=== PATIENT | male | born 1990 | race Caucasian/White ===

== ENCOUNTER 2021-12-28 14:49 | Emergency (ER) | payer OTHER, SELFPAY ==
[2021-12-28 14:58] VITALS: BP 104/64; PULSE 92; RESP 16; TEMP 36.4; O2SAT 99
--- NOTE | 2021-12-28 15:20 | ED.SKABFB ---
HPI - Skin/Abscess/Foreign Bdy General Chief complaint: Skin/Abscess/Foreign Body Stated complaint: RASH Time Seen by Provider: 12/28/21 15:20 Source: patient and RN notes reviewed Mode of arrival: ambulatory Limitations: no limitations History of Present Illness HPI narrative: 31-year-old male presents to the [facility] with multiple red, itchy rashes. Has a red, honey colored crusted area to the left nostril. Left inner upper thigh multi small areas less than half centimeter piece that he describes as itchy. Left lower inner thigh 2 cm red, warm circular area. States its been approximately 1 week since this all started. Has tried [id number] treatments with no relief, Neosporin. Related Data Home Medications Medication Instructions Recorded Confirmed paroxetine HCl 20 mg tablet mg PO 12/28/21 risankizumab-rzaa 150 mg/mL mg subcut 12/28/21 subcutaneous syringe (Skyrizi) Allergies Allergy/AdvReac Type Severity Reaction Status Date / Time iodine Allergy Rash Uncoded 12/28/21 15:34 Review of Systems Review of Systems: All systems reviewed & are unremarkable except as noted in HPI and below Constitutional: Constitutional: Reports no additional constitutional complaints, Denies chills and Denies fever(s) Eyes: Eyes: Reports no additional eye complaints ENT: Reports as per HPI Cardiovascular: Cardiovascular: Reports no additional cardiovascular complaints Respiratory: Respiratory: Reports no additional respiratory complaints Gastrointestinal: Gastrointestinal: Reports no additional gastrointestinal complaints Musculoskeletal: Musculoskeletal: Reports no additional musculoskeletal complaints Integumentary/Breasts: Skin/Breast: Reports as per HPI Neurologic: Reports system reviewed and no additional complaints, except as documented Psychiatric: Psychiatric: Reports no additional psychiatric complaints Allergic/Immunologic: Allergic/Immunologic: Reports no additional allergic/immunologic complaints PMFSH Comments At the time of my signature, I reviewed and agree with the nursing past medical, surgical, social, and family history. There is no relevant family history pertinent to the patient complaint. Exam Const: General: healthy appearing, no acute distress and alert Nutritional Appearance: well nourished Orientation/consciousness: patient oriented x3 Limitations: no limitations HENMT: Head: normal to inspection Ears: external ears normal General nose exam: Normal external nose present and Normal nares present Nose image: 1. Less than half centimeter red, crusted area without drainage or surrounding inflammation Face and sinus: normal facial exam, sinuses nontender and face symmetric Eyes: General: appearance normal, both eyes and all related structures Conjunctivae: conjunctivae normal Pupils: Equal, round and reactive pupils present Neck: Neck: normal visual inspection, no lymphadenopathy and no meningeal signs Chest: Chest palpation & inspection: normal inspection of the chest Resp: Effort & Inspection: normal respiratory effort and no use of accessory muscles Auscultation: clear to auscultation bilaterally, no crackles, no rales, no rhonchi and no wheezes Cardio: Rate: regular rate Rhythm: regular rhythm Back/Spine/Pelvis: Cervical Spine: normal cervical lordosis Thoracic/Lumbar Spine: thoracic and lumbar spine normal to inspection Skin: General skin exam: normal color Wounds: no wounds Other: Red area medial inner left nostril, honey colored crust. Neuro: General: patient oriented x3, moves all extremities, no meningeal signs and no focal motor deficits Cranial nerves: Yes Equal, round and reactive pupils present Speech: normal speech Gait exam (Neuro): Normal gait present Extrem: General: normal to inspection, full ROM and capillary refill normal Psych: Appearance: grossly normal and well kempt Mental Status: mental status grossly normal Affect: normal affect
== END 2021-12-28 15:40 | disposition home or self-care (01) ==
PROVIDERS: Emergency Provider Nurse Practitioner; PCP Family Medicine
DX: L01.00 Impetigo, unspecified (principal); B35.9 Dermatophytosis, unspecified; L03.116 Cellulitis of left lower limb; L40.9 Psoriasis, unspecified
CPT/HCPCS: 99213; G0463

== ENCOUNTER 2023-11-02 12:42 | Emergency (ER) | payer OTHER, SELFPAY ==
--- NOTE | 2023-11-02 12:48 | ED.GENADULT ---
HPI - General Adult General Chief complaint: Eye Problems Stated complaint: Eyes Irritation Time Seen by Provider: 11/02/23 13:00 Source: patient, RN notes reviewed and old records reviewed Mode of arrival: ambulatory Limitations: no limitations History of Present Illness HPI narrative: 33-year-old male presents to the [facility] with bilateral eye irritations. States that at 2:00 a.m. he was using a plasma cutter with just a pair of sunglasses, no holding home med or glasses. States since then he woke up and his eyes have been irritated, burning. Does not wear glasses, does not were contacts. Denies any change in vision, visual acuity done. Patient report last Tdap was 1-2 years ago, states it was under 5 years. Onset (ago): hour(s) Related Data Home Medications Medication Instructions Recorded Confirmed paroxetine HCl 20 mg tablet 20 mg PO DAILY 12/28/21 11/02/23 risankizumab-rzaa 150 mg/mL 150 mg subcut WEEKLY 12/28/21 11/02/23 subcutaneous syringe (Skyrizi) Allergies Allergy/AdvReac Type Severity Reaction Status Date / Time iodine Allergy Rash Uncoded 11/02/23 12:44 Review of Systems Review of Systems: All systems reviewed & are unremarkable except as noted in HPI and below Constitutional: Constitutional: Reports no additional constitutional complaints Eyes: Eyes: Reports as per HPI ENT: Reports system reviewed and no additional complaints, except as documented Cardiovascular: Cardiovascular: Reports no additional cardiovascular complaints, Denies chest pain and Denies dyspnea Respiratory: Respiratory: Reports no additional respiratory complaints, Denies chest congestion, Denies cough and Denies dyspnea Gastrointestinal: Gastrointestinal: Reports no additional gastrointestinal complaints, Denies abdominal pain, Denies nausea and Denies vomiting Musculoskeletal: Musculoskeletal: Reports no additional musculoskeletal complaints Integumentary/Breasts: Skin/Breast: Reports system reviewed and no additional complaints, except as docu Neurologic: Reports system reviewed and no additional complaints, except as documented Psychiatric: Psychiatric: Reports no additional psychiatric complaints Allergic/Immunologic: Allergic/Immunologic: Reports no additional allergic/immunologic complaints PMFSH Comments At the time of my signature, I reviewed and agree with the nursing past medical, surgical, social, and family history. There is no relevant family history pertinent to the patient complaint. Exam Const: General: cooperative, healthy appearing, comfortable, no acute distress, well developed, alert and well nourished Nutritional Appearance: well nourished Orientation/consciousness: patient oriented x3 Limitations: no limitations HENMT: Head: normal to inspection Ears: hearing grossly normal bilaterally and external ears normal Face/Nose/Sinus: Normal external nose present, Normal nares present, Normal nasal mucous membranes and turbinates present, normal facial exam and face symmetric Face and sinus: normal facial exam and face symmetric Throat: posterior oropharynx normal, uvula midline and no uvular edema Eyes: General: appearance normal, both eyes and all related structures Visual Gomes: normal visual gomes by confrontation Alignment and Position: alignment normal Periorbital: periorbital findings normal Eyelids: eyelids normal Conjunctivae: conjunctivae normal Sclera: sclerae normal Cornea: corneas normal and fluorescein used Pupils: Equal, round and reactive pupils present EOM: EOMs intact bilaterally Neck: Neck: normal visual inspection, full ROM, no lymphadenopathy and no meningeal signs Chest: Chest palpation & inspection: normal inspection of the chest Resp: Effort & Inspection: normal respiratory effort and able to speak in complete sentences Cardio: Rate: regular rate Skin: General skin exam: normal color and no rashes or lesions noted Lesions: no lesions Rashes: no rashes Traum
[2023-11-02 13:00] VITALS: BP 106/59; PULSE 85; RESP 18; TEMP 36.6; O2SAT 99
[2023-11-02] MEDS: TETRACAINE HCL 0.5% OPHTH SOLN 4 ML BTL 1 DROP EACH EYE (13:17)
[2023-11-02] MEDS: FLUORESCEIN SOD 1 MG/STRIP EACH EYE ×2 (13:17→13:27)
== END 2023-11-02 13:35 | disposition home or self-care (01) ==
PROVIDERS: Emergency Provider Nurse Practitioner; PCP Physician Assistant Medical
DX: H16.133 Photokeratitis, bilateral (principal); E78.00 Pure hypercholesterolemia, unspecified; R73.03 Prediabetes; L40.9 Psoriasis, unspecified; F32.A Depression, unspecified
CPT/HCPCS: 99213; G0463

== ENCOUNTER 2024-10-09 14:21 | Emergency (ER) | payer OTHER, SELFPAY ==
--- NOTE | ~2024-10-09 | XR_ITS ---
EXAMINATION: XR chest 1V portable DATE: 10/09/2024 15:03 INDICATION: Wheezing and crackles at the lung bases TECHNIQUE: frontal view of the chest was obtained. COMPARISON: None FINDINGS: The lungs are clear with no focal airspace opacities, pulmonary edema, pleural effusion or pneumothor ax. The cardiomediastinal silhouette is normal. Visualized bones and soft tissues are unremarkable. IMPRESSION: 1. No acute cardiopulmonary disease. Reviewed, dictated and finalized at location A.
[2024-10-09 14:23] VITALS: BP 108/58; PULSE 108; RESP 20; TEMP 36.6; O2SAT 96
--- OUTSIDE RECORDS SUMMARY | 2024-10-09 14:26 | XMS_ITS | Clinical Summary ---
Author Organization [place] [id number] [facility] Address [address] [place] [id number] Care Team Providers Care Data Abstractor Name Role Phone Jamison Ng MD Unavailable Perez Peterson Primary Care Provider [phone] Allergies Active Allergy Reactions Criticality Noted Date Comments Iodine Hives,Swelling,Vomiting Medium 12/11/2018 Medications Skyrizi 150 mg/mL syringe Every 3 months 2 Active pen needle, diabetic 32 gauge x 5/32 needleIndications: DM type 2 with diabetic dyslipidemia (HCC) With ozempic 30 each 4 Active ketoconazole (NIZORAL) 2 % cream Apply topically As needed 4 Active atorvastatin (LIPITOR) 40 mg tabletIndications: Mixed hyperlipidemia Take 1 tablet (40 mg total) by mouth daily 90 tablet 3 4 Active semaglutide (Ozempic) 1 mg/dose (4 mg/3 mL) pen injector injectionIndicatio ns:DM type 2 with diabetic dyslipidemia (HCC) Inject 1 mg under the skin once a week 3 mL 2 4 Active PARoxetine (PAXIL) 40 mg tabletIndications: Excessive anger Take 1 tablet (40 mg total) by mouth every morning 90 tablet 3 4 025 Active testosterone cypionate (DEPO-TESTOTERONE) 200 mg/mL injectionIndicatio ns:Hypogonadism in male Inject 1 mL (200 mg total) into the muscle as instructed every 14 (fourteen) days 2 mL 2 4 Active syringe with needle (Syringe 3cc/91Gy4-1/2) 3 mL 21 gauge x 1 1/2 syringeIndications :Hypogonadism in male 1 each every 14 (fourteen) days 2 each 2 4 Active varenicline tartrate (CHANTIX MISAEL) 0.5 mg (11)- 1 mg (42) tabletIndications: Smoking Use as directed on package instructions, try to quit smoking after 1 week. 53 tablet 4 Active varenicline tartrate (CHANTIX) 1 mg tabletIndications: Smoking Cessation Take 1 tablet (1 mg total) by mouth 2 (two) times a day Take with full glass of water. 60 tablet 1 4 Active testosterone enanthate (Xyosted) 100 mg/0.5 mL auto-injectorIndic ations:Hypogonadis m male Inject 100 mg under the skin every 7 days 2 mL 2 5 Active cholecalciferol (VITAMIN D-3) 2000 unit capsule Take 1 capsule (2,000 Units total) by mouth daily 5 Active Active Problems Problem Noted Date Diagnosed Date Intractable migraine with aura without status mi grainosus 06/24/2024 DM type 2 with diabetic dyslipidemia 07/18/2023 Assessment & Plan (03/14/2024 10:07 AM RAILROAD BRAKE OPERATOR): Chronic stable and well controlled Continue ozempic Assessment & Plan (10/23/2023 4:29 PM CDT): Chronic and not at goal Increase ozempic Assessment & Plan (07/18/2023 11:07 AM CDT): Chronic uncontrolled with hyperglycemia Start ozempic Repeat A1c in 3mo Hypogonadism male 07/18/2023 Assessment & Plan (03/14/2024 10:03 AM RAILROAD BRAKE OPERATOR): Chronic Not at goal Work on exercise, weight reduction and f/u in 3mo Repeat testosterone level in 3mo Assessment & Plan (07/18/2023 11:14 AM CDT): Chronic Not at goal Work on exercise, weight reduction and f/u in 3mo Repeat testosterone level in 3mo Mixed hyperlipidemia 07/18/2023 Assessment & Plan (03/14/2024 10:08 AM RAILROAD BRAKE OPERATOR): Chronic not at goal Non compliant with atorvastatin Lipid panel in 3mo Assessment & Plan (10/23/2023 4:30 PM CDT): Chronic Not at goal but inconsistent with dosing Continue atorvasttin Assessment & Plan (07/18/2023 11:08 AM CDT): Chronic Start atrovastatin 40mg Lipid and cmp in 3mo Excessive anger 07/27/2022 Assessment & Plan (03/14/2024 10:07 AM RAILROAD BRAKE OPERATOR): Chronic stable and well controlled Continue with paroxetine Assessment & Plan (10/23/2023 4:28 PM CDT): Chronic stable and well controlled Continue with paroxetine Assessment & Plan (07/27/2022 4:21 PM CDT): Chronic Uncontrolled Increase paxil 40 mg Gastroesophageal reflux disease 01/21/2020 Assessment & Plan (09/01/2020 5:50 PM CDT): Chronic conditions stable continue current regimen refill meds Hepatic steatosis 12/31/2018 Smoking 06/06/2018 Psoriasis 08/08/2016 Resolved Problems Problem Noted Date Diagnosed Date Resolved Date Abdominal pain 12/31/2018 01/21/2020 Viral wart on finger 12/31/2018 020 Assessment & Plan (02/25/2019 10:35 PM RAILROAD BRAKE OPERATOR): prior to procedure consent was obtained after the patient was explained to on the possible complications and patient voice aknowlegement. local anesthetic with 1% lidocaine after betadine skin prep. after appropriate anesthetic #15 blade was used to perform shave excision the lesion of the left middle finger. lesion destruction was then performed with cauthery to the site. patient tolerated procedure well without incident. Patient sx site was bandaged and was advised of routine care. Patient advised to call with concerns/complications. Assessment & Plan (12/31/2018 4:29 PM CDT): prior to procedure consent was obtained after the patient was explained to on the possible complications and patient voice aknowlegement. local anesthetic with 1% lidocaine after betadine skin prep to left 3rd finger. after appropriate anesthetic #15 blade was used to perform shave excision the lesion. lesion destruction was then performed with cauthery to the site. patient tolerated procedure well without incident. Patient sx site was bandaged and was advised of routine care. Patient advised to call with concerns/complications. Ingrown left greater toenail 12/31/2018 01/21/2020 Assessment & Plan (12/31/2018 4:30 PM CDT): Patient was advised of procedure and possible complications. He states he is aware and gives consent to proceed with procedure. betadine skin prep. ring block used with 1% lidocaine without epi. scissors used to cut nail back the left medial great toenail sofia to base then curved hemostats used to remove spiked nail. silver nitrate used to obtain hemostasis. appropiate bandage applied and patient advised of routine care. patient tolerated prodecure well without complications. call with any questions or concerns. Patient was advised to call with any concerns/complications. Immunizations Immunization Administration Dates Next Due DTP 11/16/1994,04/20/1993 Influenza, Unspecified 03/14/2024(Deferr ed: Patient Refused),12/09/2022(Deferred: Patient Refused) OPV 11/16/1994,04/20/1993 Tdap 01/31/2022 Surgical History Surgery Date Site/Laterality Comments NO PAST SURGERIES 10/23/2023 EXCISION / CURRETTAGE OF BON E CYST / BENIGN TUMOR OF PROXIMAL HUMERUS W/ OR W/O BONE GRAFT 01/09/2024 - 02/08/2024 Left left ear Medical History Medical History Date Comments Diabetes mellitus (HCC) Hypogonadism in male Psoriasis Hyperlipidemia GERD (gastroesophageal reflux disease) Alcohol abuse Family History Medical History Relation Name Comments No Known Problems Daughter No Known Problems Father No Known Problems Maternal Grandfather No Known Problems Maternal Grandmother Asthma Mother Eri dc No Known Problems Paternal Grandfather No Known Problems Paternal Grandmother No Known Problems Son Relation Name Status Comments Daughter Alive Father Alive Unknown History Maternal Grandfather Maternal Grandmother Mother Eri dc Alive Unknown Hist ory Paternal Grandfather Paternal Grandmother Sister 1 Alive Sister 2 Alive Sister 3 Alive Son Alive Social History Tobacco Use Types Packs/Day Years Used Date Smoking Tobacco: Every Day Cigarettes 1.5 17.5 Started: 04/10/2007 Smokeless Tobacco: Never Tobacco Cessation:Ready to Q uit: Yes; Counseling Given: Not Answered Alcohol Use Standard Drinks/Week Comments Not Currently 0 (1 standard drink = 0.6 oz pur e alcohol) AUDIT-C Answer Date Recorded Q1: How often do you have a drink containing alcohol? Never 03/21/2024 Q2: How many drinks containi ng alcohol do you have on a typical day when you are drinking? Patient does not drink Q3: How often do you have si x or more drinks on one occasion? Never 03/21/2024 PHQ-2 Answer Date Recorded PHQ-2 Total Score (If total score is 3 or more points, staff should administer the PHQ-9) 0 10/23/2023 Sex and Gender Information Value Date Recorded Sex Assigned at Not on file Legal Sex Male 10:39 PM RAILROAD BRAKE OPERATOR Gender Identity Not on file Sexual Orientation Not on file Obstetrics History Last Filed Vital Signs Vital Sign Reading Time Taken Comments Blood Pressure 118/58 06/24/2024 12:56 PM CDT Pulse 91 06/24/2024 12:56 PM CDT Temperature 36.3 C (97.3 F) 06/24/2024 12:56 PM CDT Respiratory Rate 16 06/24/2024 12:5 6 PM CDT Oxygen Saturation 98% 06/24/2024 12: 56 PM CDT Inhaled Oxygen Concentration - - Weight 104.5 kg (230 lb 6.4 oz) 025 12:56 PM CDT Height 170.2 cm (5' 7.01) 06/24/2024 1 2:56 PM CDT Body Mass Index 36.08 06/24/2024 12:56 PM CDT Plan of Treatment Health Maintenance Due Date Last Done Comments Albumin Creatinine Ratio, Urine 1989 Hepatitis C Screening 1989 Dilated Eye Exam 1989 Foot Exam 1989 Hepatitis B Screening 2007 Pneumococcal vaccine <65 (1 of 2 - PCV) 01/27/2008 Covid-19 Vaccine (3 - season) 2023 07/13/2020, 06/19/2020 Regular Well Visit/Exam 18-64 07/17/2024 07/18/2023, 07/27/2022 Lipid Panel 10/18/2024 10/19/2023 eGFR 10/18/2024 10/19/2023 Depression Screening 10/22/2024 10/23/2023, 07/27/2022, 04/19/2021, Additional history exists Influenza Vaccine (#1) 2024 Hemoglobin A1C 12/22/2024 06/21/2024, 10/19/2023 DTaP/Tdap/Td Vaccine (4 - Td or Tdap) 02/01/2032 01/31/2022, 11/16/1994, 04/20/1993 HPV Vaccines Aged Out No longer eligi ble based on patient's age to complete this topic Varicella Vaccines Discontinued Procedures Procedure Name Priority Date/Time Associated Diagnosis Comments HEMOGLOBIN A1C Routine 06/21/2024 EGFR Routine 10/19/2023 HM LIPID PANEL Routine 10/19/2023 from Last 3 Months or Most Recently Relevant to Health Maintenance Results * HEMOGLOBIN A1C (06/21/2024) [facility] Provider HEALTH MAINTENANCE Final Result EXTERNAL LAB * EGFR (10/19/2023) [facility] Provider MD HEALTH MAINTENANCE Final Result EXTERNAL LAB * LIPID PANEL (10/19/2023) SCRIBED Cholesterol, Total 227.1 SCRIBED Triglycerides 251 SCRIBED HDL 29.1 SCRIBED LDL 148 [facility] Provider MD HEALTH MAINTENANCE Final Result from Last 3 Months or Most Recently Relevant to Health Maintenance Insurance [facility] CHO[facility] PLUS [facility] CHOICE PLUS Care Teams Data Abstractor Relationship Specialty Start Date End Date Perez Peterson PA PCP - General Family Medicine 07/27/22 Jamison Ng MD Family Medicine 12/06/18
--- OUTSIDE RECORDS SUMMARY | 2024-10-09 14:26 | XMS_ITS | Encounter Summary ---
Author Organization [facility] Address [address] [place] [address] Care Team Providers Care Garnisher Name Role Phone Unavailable Primary Care Provider Unavailabl e Encounter Details Date Type Department Care Team (Late st Contact Info) Description 07/31/2024 Lab Requisition [facility] - DermPath Lab [address] [place] [address] Genoveva Curtis MD [address] [facility] [address] [place] [address] Social History Tobacco Use Types Packs/Day Years Used Date Smoking Tobacco: Never Assessed Sex and Gender Information Value Date Recorded Sex Assigned at Not on file Legal Sex Male 3:51 PM CDT Gender Identity Not on file Sexual Orientation Not on file documented as of this encounter Plan of Treatment Not on file documented as of this encounter Procedures Procedure Name Priority Date/Time Associated Diagnosis Comments DERMATOPATHOLOGY Routine 07/31/2024 3:33 PM CDT documented in this encounter Results * DERMATOPATHOLOGY (07/31/2024 3:33 PM CDT) Case Report Dermatopathology Report Case: [id number] Authorizing Provider: Genoveva Curtis MD Collected: 07/31/2024 03:33 PM Ordering Location: [facility] - Received: 08/02/2024 08:31 AM DermPath Lab Pathologist: Hattie Liu MD Specimen: Skin, left forearm 1:34 PM CDT DERMATOPATHOLOGY LABORATORY Final Diagnosis Specimen A. SKIN, left forearm: ULCER WITH SUPERFICIAL DERMAL NECROSIS (L98.499) 1:34 PM CDT DERMATOPATHOLOGY LABORATORY at 1334 CDT Clinical History R/O; AK vs. ISK vs. Other, Irritated, Non-healing 1 year 1:34 PM CDT DERMATOPATHOLOGY LABORATORY Gross Description Specimen A: Received is one formalin filled container labeled with the patient's name and designated left forearm. The specimen consists of a shave biopsy (2 pieces) measuring 5x4x1, 5x2x1 mm. Jar 0. 1:34 PM CDT DERMATOPATHOLOGY LABORATORY Microscopic Description Specimen A. SKIN, left forearm: There is an ulcer, beneath which there are vascular proliferation, fibroblasts, and an edematous stroma. 1:34 PM CDT DERMATOPATHOLOGY LABORATORY Disclaimer An external and internal positive and negative controls are appropriate for the histochemical, immunohistochemical and immunofluorescence stain(s) in this case (if any), except where stated explicitly. The performance characteristics of the stain(s) cited in this report were developed and its performance characteristic determined by the Dermatopathology Laboratory at [facility], directed by Dr. Britany Ramirez. These tests need not be, and therefore are not, approved by the [place] Food and Drug Administration. The tests are used for clinical purposes. Billing Codes Specimen Charges Stain Charges 77161 1 5 1:34 PM CDT DERMATOPATHOLOGY LABORATORY Embedded Images 1:34 PM CDT DERMATOPATHOLOGY LABORATORY Pathology/Cytolo gy TISSUE SPECIMEN FROM SKIN / Unknown 07/31/2024 3:33 PM CDT 08/02/2024 8:31 AM CDT Genoveva Curtis MD LAB - PATHOLOGY/CYTOLOGY OR DERABLES Final Result DERMATOPATHOLOGY LABORATORY [facility] - Department of Dermatology [address] [place] [address], [facility] [phone] documented in this encounter Visit Diagnoses Not on filedocumented in this encounter
--- OUTSIDE RECORDS SUMMARY | 2024-10-09 14:26 | XMS_ITS | Referral Summary ---
Author Organization [place] [id number] [facility] Address [address] [place] [address] Care Team Providers Care Duster Tender Name Role Phone Jamison Ng MD Unavailable [phone] Perez Peterson Primary Care Provider [phone] Allergies Active Allergy Reactions Criticality Noted Date [...] 2 4 Active syringe with needle (Syringe 3cc/[id number]/2) 3 mL 21 gauge x 1 1/2 [...] 07/18/2023 Assessment & Plan (03/14/2024 10:07 AM SENIOR SITE MANAGER): Chronic stable and well controlled Continue ozempic Assessment & Plan (10/23/2023 4:29 PM CDT): Chronic and not at goal Increase ozempic Assessment & Plan (07/18/2023 11:07 AM CDT): Chronic uncontrolled with hyperglycemia Start ozempic Repeat A1c in 3mo Hypogonadism male 07/18/2023 Assessment & Plan (03/14/2024 10:03 AM SENIOR SITE MANAGER): Chronic Not at goal Work on exercise, weight reduction and f/u in 3mo Repeat testosterone level in 3mo Assessment & Plan (07/18/2023 11:14 AM CDT): Chronic Not at goal Work on exercise, weight reduction and f/u in 3mo Repeat testosterone level in 3mo Mixed hyperlipidemia 07/18/2023 Assessment & Plan (03/14/2024 10:08 AM SENIOR SITE MANAGER): Chronic not at goal Non compliant with atorvastatin Lipid panel in 3mo Assessment & Plan (10/23/2023 4:30 PM CDT): Chronic Not at goal but inconsistent with dosing Continue atorvasttin Assessment & Plan (07/18/2023 11:08 AM CDT): Chronic Start atrovastatin 40mg Lipid and cmp in 3mo Excessive anger 07/27/2022 Assessment & Plan (03/14/2024 10:07 AM SENIOR SITE MANAGER): Chronic stable and well controlled Continue with [...] 020 Assessment & Plan (02/25/2019 10:35 PM SENIOR SITE MANAGER): prior to procedure consent was obtained after [...] Refused),12/09/2022(Deferred: Patient Refused) OPV 11/16/1994,04/20/1993 Tdap 01/31/2022 Social History Tobacco Use Types Packs/Day Years [...] on file Legal Sex Male 10:39 PM SENIOR SITE MANAGER Gender Identity Not on file Sexual Orientation Not on file Last Filed Vital Signs Vital Sign Reading [...] 06/24/2024 12:56 PM CDT Plan of Treatment Not on file Procedures Procedure Name Priority Date/Time Associated Diagnosis Comments HEMOGLOBIN A1C Routine 06/21/2024 EGFR Routine 10/19/2023 LIPID PANEL Routine 10/19/2023 from Last 3 Months or Most Recently Relevant to Health Maintenance Results * HEMOGLOBIN A1C (06/21/2024) Historical Provider HEALTH MAINTENANCE Final Result EXTERNAL LAB * EGFR (10/19/2023) [facility] Provider HEALTH MAINTENANCE Final Result EXTERNAL LAB * LIPID PANEL (10/19/2023) SCRIBED Cholesterol, Total 227.1 SCRIBED Triglycerides 251 SCRIBED HDL 29.1 SCRIBED LDL 148 Historical Provider HEALTH MAINTENANCE Final Result from Last 3 Months or Most Recently Relevant to Health Maintenance Insurance [address] [place] [address] [facility] Address: [address] [address] [place] [id number] [facility] [employer] Address: [place] [id number] [place] [phone] Care Teams Duster Tender Relationship Specialty Start Date End Date Perez Pteerson PA PCP - General Family Medicine 07/27/22 Jamison Ng MD Family Medicine 12/06/18
--- OUTSIDE RECORDS SUMMARY | 2024-10-09 14:26 | XMS_ITS | Encounter Summary ---
Author Organization [facility] Address [address] [place] [address] Phone Care Team Providers Care Inspection Manager Name Role Phone Nicholas Perez JAMEL Primary Care Provider Alfonso Paiz MD Unavailable [phone] Encounter Details Date Type Department Care Team (Late st Contact Info) Description 12/06/2021 Telephone [facility] [address] [place] [address] Alfonso Martinez MD [address] [place] [address] Social History Tobacco Use Types Packs/Day Years Used Date Smoking Tobacco: Every Day Cigarettes 1.5 10 Smokeless Tobacco: Never Alcohol Use Standard Drinks/Week Comments Not Currently 0 (1 standard drink = 0.6 oz pur e alcohol) PHQ-2 Answer Date Recorded Total Score - Questions 1-9 0 11/09 Sex and Gender Information Value Date Recorded Sex Assigned at Not on file Legal Sex Male 9:28 AM CDT Gender Identity Not on file Sexual Orientation Not on file documented as of this encounter Miscellaneous Notes * Telephone Encounter - Janie Stallworth - 12/06/2021 3:29 PM CDT LVM FOR PT TO CALL CLINIC TO RESCHEDULE OFFICE VISIT. SENDING [place]ISS APPT LETTER. documented in this encounter Plan of Treatment Not on file documented as of this encounter Visit Diagnoses Not on filedocumented in this encounter Additional Health Concerns Assessment Noted Time PHQ-9 Depression Total Score: 0 12/01/19 21 2:11 PM CDT documented as of this encounter Care Teams Inspection Manager Relationship Specialty Start Date End Date Perez Peterson PAC PCP - General Physician Public Administration Teacher 09/04/20 Alfonso Martinez MD [address] [place] [phone] Consulting Physician Oncology 09/04/20 documented as of this encounter
--- OUTSIDE RECORDS SUMMARY | 2024-10-09 14:26 | XMS_ITS | Clinical Summary ---
Author Organization [facility] Address [address] [place] [place] [address] Care Team Providers Care Corrugator Helper Name Role Phone Unavailable Primary Care Provider Unavailabl e Source Comments [facility],non-owned Affiliates and Associated Physician Practices is amultiple site organization consisting of ambulatory clinics and hospital sitesin [place], [place], [place] and [place]. This disclosure is being madepursuant to the Care Everywhere program and may not contain all information available regarding this patient. Last updated 17.[facility] Encounters Date Type Department Care Team Description 07/31/2024 Lab Requisition [facility] - DermPath Lab [address] [place] [id number] Genoveva Curtis MD from Last 3 Months Social History Tobacco Use Types Packs/Day Years Used Date Smoking Tobacco: Never Assessed Sex and Gender Information Value Date Recorded Sex Assigned at Not on file Legal Sex Male 3:51 PM CDT Gender Identity Not on file Sexual Orientation Not on file Plan of Treatment Health Maintenance Due Date Last Done Comments HIV SCREENING 01/27/2004 HEPATITIS C SCREENING 01/22/2007 DTAP/TDAP/TD VACCINES (1 - Tdap) 01/27/2008 HEPATITIS B VACCINE (1 of 3 - 19+ 3-dose series) 01/27/2008 COVID-19 VACCINE ( - 2023-2 5 season) 2023 DEPRESSION SCREENING 04/10/2024 INFLUENZA VACCINE (Season Ended) 2024 ZOSTER VACCINE (1 of 2) 2039 HIB VACCINE Aged Out No longer eligi ble based on patient's age to complete this topic HPV VACCINE Aged Out No longer eligi ble based on patient's age to complete this topic MENINGOCOCCAL (Group B) VACC INE SHARED DECISION-MAKING Aged Out No longer eligibl e based on patient's age to complete this topic MENINGOCOCCAL GROUPS A/C/Y/W VACCINE Aged Out No longer eligible b ased on patient's age to complete this topic PNEUMOCOCCAL VACCINE Aged Out No long er eligible based on patient's age to complete this topic Procedures Procedure Name Priority Date/Time Associated Diagnosis Comments DERMATOPATHOLOGY Routine 07/31/2024 3:33 PM CDT from Last 3 Months Results * DERMATOPATHOLOGY (07/31/2024 3:33 PM CDT) Case Report Dermatopathology Report Case: [id number] Authorizing Provider: Genoveva Curtis MD Collected: 07/31/2024 03:33 PM Ordering Location: [facility] - Received: 08/02/2024 08:31 AM [...] characteristic determined by the Dermatopathology Laboratory at [facility], directed by Dr. Britany Ramirez. These tests need not be, and therefore are not, approved by the [place] Food and Drug Administration. The tests are used for clinical purposes. Billing Codes Specimen Charges Stain Charges 16908 1 5 1:34 PM CDT DERMATOPATHOLOGY LABORATORY Embedded Images 5 1:34 PM CDT DERMATOPATHOLOGY LABORATORY Pathology/Cytolo gy TISSUE SPECIMEN FROM SKIN / Unknown 07/31/2024 3:33 PM CDT 08/02/2024 8:31 AM CDT us Genoveva Curtis MD LAB - PATHOLOGY/CYTOLOGY OR DERABLES Final Result DERMATOPATHOLOGY LABORATORY [facility] - Department of Dermatology [address] [phone] from Last 3 Months Insurance [facility]
--- OUTSIDE RECORDS SUMMARY | 2024-10-09 14:26 | XMS_ITS | Clinical Summary ---
Author Organization [facility] Address [address], [facility] [address] [place] [address] Phone Care Team Providers Care Securities Supervisor Name Role Phone Perez Peterson Primary Care Provider Alfonso Paiz MD Unavailable [phone] Allergies Active Allergy Reactions Criticality Noted Date Comments Iodine Hives,Swelling,Vomiting Medium 12/11/2018 Medications pantoprazole (PROTONIX) 40 MG Tablet Delayed Response 09/12/2020 Active PARoxetine (PAXIL) 20 MG Tablet 09/12/2020 Active Skyrizi, 150 MG Dose, 75 MG/0.83ML Prefilled Syringe Kit 08/11/2020 Active Immunizations Immunization Administration Dates Next Due Covid-19, Mrna, Lnp-s, Pf, 30 Mcg/0.3 Ml Dose (P fizer) 07/13/2020,06/19/2020 DTP Vaccine 11/16/1994,04/20/1993 OPV 11/16/1994,04/20/1993 Family History Medical History Relation Name Comments Cancer Maternal Grandfather Cancer Maternal Grandmother Psoriasis Mother Rheumatoid Arthritis Mother Relation Name Status Comments Maternal Grandfather prostat e Maternal Grandmother lung Mother Alive Social History Tobacco Use Types Packs/Day Years Used Date Smoking Tobacco: Every Day Cigarettes 1.5 10 Smokeless Tobacco: Never Tobacco Cessation:Ready to Q uit: No; Counseling Given: Yes Alcohol Use Standard Drinks/Week Comments Not Currently [...] Sign Reading Time Taken Comments Blood Pressure 110/72 11/30/2020 2:05 PM CDT Pulse 85 11/30/2020 2:05 PM CDT Temperature 36.1 C (96.9 F) 11/02/2020 3:40 PM CDT Respiratory Rate 18 11/02/2020 3:40 PM CDT Oxygen Saturation 97% 11/30/2020 2:05 PM CDT Inhaled Oxygen Concentration - - Weight 107.2 kg (236 lb 6.4 oz) 11/30/2020 2:05 PM CDT Height 172.7 cm (5' 8) 11/30/2020 2:05 PM CDT Body Mass Index 35.94 11/30/2020 2:05 PM CDT Plan of Treatment Health Maintenance Due Date Last Done Comments Hepatitis C Virus (HCV) Screening 1989 Hepatitis B Immunization (1 of 3 - 19+ 3-dose series) 01/27/2008 SARS-COV-2 Immunization ( season) 2023 07/13/2020, 06/19/2020 Influenza Immunization (Seas on Ended) 2024 Respiratory Syncytial Virus (RSV) Immunization (Adult) (1 - 1-dose 75+ series) 01/27/2064 DTaP/Tdap/Td Immunization Discontinued 1994, 04/20/1993 Human Papillomavirus (HPV) Immunization Aged Out No longer eligible based on patient's age to complete this topic Meningococcal Immunization (ACWY) Aged Out No longer eligible based on patient's age to complete this topic Pneumococcal Immunization Combined Aged Out No longer eligible based on patient's age to complete this topic Rotavirus Immunization Aged Out No lo nger eligible based on patient's age to complete this topic Insurance [facility] Care Teams Securities Supervisor Relationship Specialty Start Date End Date Perez Peterson PAC PCP - General Physician Manager Document 09/04/20 Alfonso Martinez MD [address] [place] [phone] Consulting Physician Oncology 09/04/20
--- OUTSIDE RECORDS SUMMARY | 2024-10-09 14:26 | XMS_ITS | Clinical Summary ---
Author Organization [facility] Address [address] [place] [address] Care Team Providers Care Peoplesoft Hr Developer Name Role Phone Jamison Ng MD Primary Care Provider [phone] Medications PARoxetine 20 MG tablet Take 20 mg by mouth daily. 09/01/2020 Active SKYRIZI 150 MG/ML Solution Prefilled Syringe 02/18/2021 Active methocarbamol (ROBAXIN-750) 750 MG Tab Take 1 tablet (750 mg total) by mouth every 8 (eight) hours as needed (muscle spasm). 30 tablet 03/19/2021 Active Active Problems No known active problems Social History Tobacco Use Types Packs/Day Years Used Date Smoking Tobacco: Every Day Smokeless Tobacco: Never Sex and Gender Information Value Date Recorded Sex Assigned at Not on file Legal Sex Male 7:59 PM CDT Gender Identity Not on file Sexual Orientation Not on file Last Filed Vital Signs Vital Sign Reading Time Taken Comments Blood Pressure 109/58 03/19/2021 5:57 PM WAXER OPERATOR Pulse 85 03/19/2021 5:57 PM WAXER OPERATOR Temperature 36.9 C (98.4 F) 03/19/2021 5:57 PM WAXER OPERATOR Respiratory Rate 16 03/19/2021 5:57 PM WAXER OPERATOR Oxygen Saturation 99% 03/19/2021 5:57 PM WAXER OPERATOR Inhaled Oxygen Concentration - - Weight 108.9 kg (240 lb) 03/19/2021 5:57 PM WAXER OPERATOR Height 172.7 cm (5' 8) 03/19/2021 5:57 PM WAXER OPERATOR Body Mass Index 36.49 03/19/2021 5:57 PM WAXER OPERATOR Plan of Treatment Health Maintenance Due Date Last Done Comments Annual Physical 01/27/1992 Hepatitis C 2007 DTaP, Tdap and Td Vaccines ( 3 - Tdap) 01/27/2008 11/16/1994, 04/20/1993 Hepatitis B Vaccines (1 of 3 - 19+ 3-dose series) 01/27/2008 Pneumococcal Vaccine: Pediatrics (0 to 5 Years) and At-Risk Patients (6 to 49 Years) (1 of 2 - PCV) 01/27/2008 COVID-19 Vaccine (3 - 2023-2 5 season) 2023 07/13/2020, 06/19/2020 HPV Vaccines Aged Out No longer eligi ble based on patient's age to complete this topic Meningococcal B Vaccine Aged Out No l onger eligible based on patient's age to complete this topic Meningococcal Vaccine Aged Out No ivonne wenceslao eligible based on patient's age to complete this topic RSV Immunizations Under 20 Months Aged Out No longer eligible b ased on patient's age to complete this topic Insurance Care Teams Peoplesoft Hr Developer Relationship Specialty Start Date End Date Jamison Ng MD PCP - General FAMILY PRACTICE 03/19/21
[2024-10-09] MEDS: FAMOTIDINE 20 MG/2 ML VIAL IV PUSH (14:30)
[2024-10-09] MEDS: SODIUM CHLORIDE 0.9% IV 1,000 ML 999 ML IV CONT (14:30)
[2024-10-09] MEDS: dexAMETHasone SOD PHOS INJ 10 MG/ML 1 ML VIAL IV PUSH (14:31)
--- NOTE | 2024-10-09 14:44 | ECG_ITS ---
Test Date: 2024-10-09 14:57:22 Measurements Intervals [place] Rate: 96 P: 37 WV: 155 QRS: 23 QRSD: 96 T: 7 QT: 272 QTc: 344 Interpretive Statements SINUS RHYTHM POSSIBLE RIGHT VENTRICULAR CONDUCTION DELAY [RSR (QR) IN V1/V2] NONSPECIFIC T-WAVE ABNORMALITY No previous ECG available for comparison Electronically Signed On 10-10-2024 16:33:40 CDT by Divine Sandhu
--- NOTE | 2024-10-09 14:49 | ED.ALLEREA ---
HPI - Allergic Reaction General Chief complaint: Allergic Reaction Stated complaint: allergic reaction Time Seen by Provider: 10/09/24 14:23 History of Present Illness HPI narrative: Patient is a 34-year-old male who presents to the ER after being stung by wasps. He reports the incident took place approximately 30 minutes prior to arrival. Patient reports he climbed into a skid limerock tower loader without realizing there were 2 wasps nest inside. He reports he thinks he was stung approximately 5-6 times on the back of his neck. Patient endorses a history of an allergy to iodine, hyperlipidemia, allergy to bees, and asthma. He reports he is a cigarette smoker but denies using vapes, using marijuana, or illicit drug use. Patient endorses experiencing shortness of breath and wheezing that started approximately 10 minutes after being stung. He denies any chest pain, difficulty controlling secretions, neck stiffness, or recent cough. Related Data Home Medications ?Medication ?Instructions ?Recorded ?Confirmed ?Last Taken ?Type paroxetine HCl 20 mg tablet 20 mg PO DAILY 12/28/21 11/02/23 Unknown History risankizumab-rzaa 150 mg/mL 150 mg subcut WEEKLY 12/28/21 11/02/23 Unknown History subcutaneous syringe (Skyrizi) Allergies Allergy/AdvReac Type Severity Reaction Status Date / Time iodine Allergy Rash Uncoded 10/09/24 14:33 Review of Systems Review of Systems: All systems reviewed & are unremarkable except as noted in HPI and below Exam Narrative: GENERAL: Ill appearing, obese, non-toxic, in mild distress. HEAD: Normocephalic, atraumatic. NECK: Supple. No adenopathy, no masses. + edema and redness RESPIRATORY: Negative stridor, Airway patent, respirations nonlabored. + wheezing in bilateral upper lobes, + crackles in lower lobes. CARDIOVASCULAR: Tachycardia without murmurs, rubs, or gallops. Peripheral pulses 2+ and equal bilaterally. ABDOMINAL: Soft, nontender, nondistended, no hepatosplenomegaly. Normoactive BS. MUSCULOSKELETAL: Moves all extremities. Strength/ROM intact without gross deformities. SKIN: Warm, dry, normal color. Hives to face, neck, chest, upper extremities, abdomen, back, lower extremities (including feet) NEURO: A&O X3. Speech clear. Cranial nerves II-XII intact. No difficulty speaking in full sentences PSYCHIATRIC: Appropriate mood and affect. Normal interaction. Course Vital Signs Vital signs: Vital Signs Temperature 36.6 C 10/09/24 14:23 Pulse Rate 108 H 10/09/24 14:23 Respiratory Rate 20 10/09/24 14:23 Blood Pressure 108/58 L 10/09/24 14:23 Pulse Oximetry 96 10/09/24 14:23 Oxygen Delivery Room Air 10/09/24 14:23 Temperature 36.6 C 10/09/24 14:23 Pulse Rate 97 10/09/24 15:00 Respiratory Rate 20 10/09/24 15:00 Blood Pressure 108/58 L 10/09/24 14:23 Pulse Oximetry 96 10/09/24 14:23 Oxygen Delivery Room Air 10/09/24 14:23 MDM - Allergic Reaction MDM Narrative Medical decision making narrative: Patient is a 34-year-old male who presents to the ER after being stung by wasps. He reports the incident took place approximately 30 minutes prior to arrival. Patient reports he climbed into a skid limerock tower loader without realizing there were 2 wasps nest inside. He reports he thinks he was stung approximately 5-6 times on the back of his neck. Patient endorses a history of an allergy to iodine, hyperlipidemia, allergy to bees, and asthma. He reports he is a cigarette smoker but denies using vapes, using marijuana, or illicit drug use. Patient endorses experiencing shortness of breath and wheezing that started approximately 10 minutes after being stung. He denies any chest pain, difficulty controlling secretions, neck stiffness, or recent cough. Labs Ordered: None necessary Imaging Ordered: Chest x-ray Medications Ordered: Benadryl 50 mg IV, Decadron 10 mg IV, 1 L normal saline IV bolus, Pepcid 20 mg IV, DuoNeb Results: Pt's chest x-ray indicates The lungs are clear with no focal airspace opacities, pulmonary edema, pleural effusion or pneumothorax. The cardiomediastinal silhouette is normal. Visualized bones and soft tissues are unremarkable. Diagnosis: Allergic reaction CRITICAL CARE ADDENDUM: Indication: allergic reaction requiring immediate intervention Time type: intermittent I provided a total of 40 minutes of critical care excluding separately billable procedures. This includes time w/ EMS, initial bedside evaluation, reviewing old records, review of testing done while under my care, discussion w/ the family, nurses, outbound sales consultant and guiding the patient?s care while in the emergency department. Approximate time distribution: 10 minutes ? Initial evaluation, d/w involved parties, attempting to gather old records. 10 minutes ? Documenting medical record 10 minutes ? Review of results (EKGs, labs, imaging) 10 minutes ? Serial repeat bedside evaluation Please see main chart for details. Excludes separately billable procedures. Patient Education/Shared MDM: Results of imaging shared with patient. Pt's vital signs have remained stable throughout his stay in the ER. He endorses significant improvement of symptoms following medication administration. Patient strongly advised to maintain hydration status upon discharge and follow-up with his PCP as soon as possible. He will be discharged home with a prescription for an albuterol inhaler and epipen. Strict return precautions provided. Patient verbalized understanding and is in agreement with plan. Vital signs stable at time of discharge. All questions answered. Differential Diagnosis Differential diagnosis: Likely anaphylaxis, allergic reaction, angioedema and urticaria Imaging Data Attestation: I personally reviewed and interpreted this imaging study as follows: Radiologist's impression: Impressions Chest X-Ray 10/09/24 15:06 IMPRESSION: 1. No acute cardiopulmonary disease. Discharge Plan Discharge Clinical Impression: Allergic reaction, Urticaria Patient Disposition: Home Condition: Stable Instructions: Antibiotic Form, Urticaria (ED), Insect Bite or Sting (ED), Anaphylaxis (ED) Additional Instructions: Please return to the ER with any worsening symptoms. Follow-up with primary care provider as soon as possible. Take all medications as prescribed, including regularly scheduled medications. Carry your EpiPen with you every very ago. Patient Language: Gabonese Prescriptions: New epinephrine [EpiPen] 0.3 mg/0.3 mL auto-injector 0.3 mg IM Q5-15M PRN (Reason: anaphylaxis) Qty: 1 3RF Rx Instructions: do not exceed 3 doses per episode albuterol sulfate [Ventolin HFA] 90 mcg/actuation HFA aerosol inhaler 2 puff inhalation QID PRN (Reason: shortness of breath or wheezing) Qty: 8.5 0RF No Action erythromycin 5 mg/gram (0.5 %) ointment 0.5 inch EACH EYE TID Qty: 3.5 0RF paroxetine HCl 20 mg tablet 20 mg PO DAILY Skyrizi 150 mg/mL syringe 150 mg SUBCUT WEEKLY mupirocin 2 % ointment 1 applic topical TID Qty: 15 0RF Rx Instructions: NOSE clotrimazole 1 % cream 1 applic topical BID 28 Days Qty: 90 0RF Follow-up/Referrals: Nicholas,LUZ Todd [Primary Care Provider] - Stand Alone Forms: Work/School Release IP
--- NOTE | 2024-10-09 14:49 | PC.NURSE ---
Patient states he is feeling better and breathing has gotten easier.
[2024-10-09] MEDS: ALBUTEROL SULFATE NEB 2.5 MG/3 ML INH 10 MG INHALATION (14:59)
[2024-10-09 15:00] VITALS: PULSE 97; RESP 20
--- OUTSIDE RECORDS SUMMARY | 2024-10-09 15:26 | XMS_ITS | Clinical Summary ---
Author Organization [facility] Address [address] [place] [address] Care Team Providers Care Vat House Laborer Name Role Phone Jamison Ng MD Primary Care Provider [phone] Medications PARoxetine 20 MG tablet Take 20 [...] Comments Blood Pressure 109/58 03/19/2021 5:57 PM MEDICAL INSURANCE COLLECTOR Pulse 85 03/19/2021 5:57 PM MEDICAL INSURANCE COLLECTOR Temperature 36.9 C (98.4 F) 03/19/2021 5:57 PM MEDICAL INSURANCE COLLECTOR Respiratory Rate 16 03/19/2021 5:57 PM MEDICAL INSURANCE COLLECTOR Oxygen Saturation 99% 03/19/2021 5:57 PM MEDICAL INSURANCE COLLECTOR Inhaled Oxygen Concentration - - Weight 108.9 kg (240 lb) 03/19/2021 5:57 PM MEDICAL INSURANCE COLLECTOR Height 172.7 cm (5' 8) 03/19/2021 5:57 PM MEDICAL INSURANCE COLLECTOR Body Mass Index 36.49 03/19/2021 5:57 PM MEDICAL INSURANCE COLLECTOR Plan of Treatment Health Maintenance Due Date [...] to complete this topic Insurance Care Teams Vat House Laborer Relationship Specialty Start Date End Date Jamison Ng MD PCP - General FAMILY PRACTICE 03/19/21
--- OUTSIDE RECORDS SUMMARY | 2024-10-09 15:26 | XMS_ITS | Clinical Summary ---
Author Organization [facility] Address [address] [place] [address] Care Team Providers Care Director Of Rehabilitation And Wellness Name Role Phone Unavailable Primary Care Provider Unavailabl e Source Comments [facility],non-owned Affiliates and Associated Physician Practices is amultiple site organization consisting of ambulatory clinics and hospital sitesin [place], [place], [place] and [place]. This disclosure is being madepursuant to the Care Everywhere program and may not contain all information available regarding this patient. Last updated 17.[facility] Encounters Date Type Department Care Team Description 07/31/2024 Lab Requisition [facility] - DermPath Lab [address] [place] [id number] Genoveva Curtis MD from Last 3 Months [...] PM CDT) Case Report Dermatopathology Report Case: [id number] Authorizing Provider: Genoveva Curtis MD Collected: 07/31/2024 03:33 PM Ordering Location: [facility] - Received: 08/02/2024 08:31 [...] purposes. Billing Codes Specimen Charges Stain Charges [id number] 1 5 1:34 PM CDT DERMATOPATHOLOGY LABORATORY Embedded Images 5 1:34 PM CDT DERMATOPATHOLOGY LABORATORY Pathology/Cytolo gy TISSUE SPECIMEN FROM SKIN / Unknown 07/31/2024 3:33 PM CDT 08/02/2024 8:31 AM CDT us Genoveva Curtis MD LAB - PATHOLOGY/CYTOLOGY OR DERABLES Final Result DERMATOPATHOLOGY LABORATORY [facility] - Department of Dermatology [address], [address] [phone] from Last 3 Months Insurance [facility]
--- OUTSIDE RECORDS SUMMARY | 2024-10-09 15:26 | XMS_ITS | Clinical Summary ---
Author Organization [facility] Address [address], [facility] [address] [place] [address] Phone Care Team Providers Care Edge Cutter Name Role Phone Perez Peterson Primary Care Provider Alfonso Paiz MD Unavailable [phone] Allergies Active Allergy Reactions Criticality Noted Date [...] patient's age to complete this topic Insurance [facility] Care Teams Edge Cutter Relationship Specialty Start Date End Date Perez Peterson PAC PCP - General Physician Valve Repairer 09/04/20 Alfonso Martinez MD [address] [place] [id number] Consulting Physician Oncology 09/04/20
--- OUTSIDE RECORDS SUMMARY | 2024-10-09 15:26 | XMS_ITS | Encounter Summary ---
Author Organization [facility] Address [address] [place] [address] Care Team Providers Care Substation Designer Name Role Phone Unavailable Primary Care Provider Unavailabl e Encounter Details Date Type Department Care Team (Late st Contact Info) Description 07/31/2024 Lab Requisition [facility] - DermPath Lab [address] [facility] [place] [address] Genoveva Curtis MD [address] [facility] [address] [place] [address] Social History Tobacco Use Types Packs/Day Years [...] PM CDT) Case Report Dermatopathology Report Case: [id number] Authorizing Provider: Genoveva Curtis MD Collected: 07/31/2024 03:33 PM Ordering Location: [facility] - Received: 08/02/2024 08:31 [...] characteristic determined by the Dermatopathology Laboratory at [facility], directed by Dr. Britany Ramirez. These tests need not be, and therefore are not, approved by the [place] Food and Drug Administration. The tests are used for clinical purposes. Billing Codes Specimen Charges Stain Charges [id number] 1 5 1:34 PM CDT DERMATOPATHOLOGY LABORATORY Embedded Images 1:34 PM CDT DERMATOPATHOLOGY LABORATORY Pathology/Cytolo gy TISSUE SPECIMEN FROM SKIN / Unknown 07/31/2024 3:33 PM CDT 08/02/2024 8:31 AM CDT Genoveva Curtis MD LAB - PATHOLOGY/CYTOLOGY OR DERABLES Final Result DERMATOPATHOLOGY LABORATORY [facility] - Department of Dermatology [address] [place] [address], [facility] [phone] documented in this encounter Visit Diagnoses Not on filedocumented in this encounter
--- OUTSIDE RECORDS SUMMARY | 2024-10-09 15:26 | XMS_ITS | Referral Summary ---
Author Organization [place] [address] [facility] Address [address] [place] [id number] Care Team Providers Care Supervisor Sample Name Role Phone Jamison Ng MD Unavailable [phone] Perez Peterson Primary Care Provider [phone] Allergies Active Allergy Reactions Criticality Noted Date [...] 2 4 Active syringe with needle (Syringe 3cc/07Jc1-3/2) 3 mL 21 gauge x 1 1/2 [...] 07/18/2023 Assessment & Plan (03/14/2024 10:07 AM LABORER SALVAGE): Chronic stable and well controlled Continue ozempic Assessment & Plan (10/23/2023 4:29 PM CDT): Chronic and not at goal Increase ozempic Assessment & Plan (07/18/2023 11:07 AM CDT): Chronic uncontrolled with hyperglycemia Start ozempic Repeat A1c in 3mo Hypogonadism male 07/18/2023 Assessment & Plan (03/14/2024 10:03 AM LABORER SALVAGE): Chronic Not at goal Work on exercise, weight reduction and f/u in 3mo Repeat testosterone level in 3mo Assessment & Plan (07/18/2023 11:14 AM CDT): Chronic Not at goal Work on exercise, weight reduction and f/u in 3mo Repeat testosterone level in 3mo Mixed hyperlipidemia 07/18/2023 Assessment & Plan (03/14/2024 10:08 AM LABORER SALVAGE): Chronic not at goal Non compliant with atorvastatin Lipid panel in 3mo Assessment & Plan (10/23/2023 4:30 PM CDT): Chronic Not at goal but inconsistent with dosing Continue atorvasttin Assessment & Plan (07/18/2023 11:08 AM CDT): Chronic Start atrovastatin 40mg Lipid and cmp in 3mo Excessive anger 07/27/2022 Assessment & Plan (03/14/2024 10:07 AM LABORER SALVAGE): Chronic stable and well controlled Continue with [...] 020 Assessment & Plan (02/25/2019 10:35 PM LABORER SALVAGE): prior to procedure consent was obtained after [...] on file Legal Sex Male 10:39 PM LABORER SALVAGE Gender Identity Not on file Sexual Orientation [...] Final Result EXTERNAL LAB * EGFR (10/19/2023) [facility] Provider HEALTH MAINTENANCE Final Result EXTERNAL LAB * LIPID PANEL (10/19/2023) SCRIBED Cholesterol, Total 227.1 SCRIBED Triglycerides 251 SCRIBED HDL 29.1 SCRIBED LDL 148 Historical Provider HEALTH MAINTENANCE Final Result from Last 3 Months or Most Recently Relevant to Health Maintenance [place] [address] [place] [address] [facility] H[facility]/PPO Address: [address] [address] [place] [id number] [facility] CHO[employer] H[facility]/PPO Address: [place] [id number] [place] [id number] Care Teams Supervisor Sample Relationship Specialty Start Date End Date Perez Peterson PA PCP - General Family Medicine 07/27/22 Jamison Ng MD Family Medicine 12/06/18
--- OUTSIDE RECORDS SUMMARY | 2024-10-09 15:26 | XMS_ITS | Clinical Summary ---
Author Organization [place] [id number] [facility] Address [address] [place] [phone] Care Team Providers Care Vp Customer Development Name Role Phone Jamison Ng MD Unavailable [phone] Perez Peterson Primary Care Provider [phone] Allergies Active Allergy Reactions Criticality Noted Date [...] 2 4 Active syringe with needle (Syringe 3cc/73Av0-8/2) 3 mL 21 gauge x 1 1/2 [...] 07/18/2023 Assessment & Plan (03/14/2024 10:07 AM NON DESTRUCTIVE TESTING SPECIALIST): Chronic stable and well controlled Continue ozempic Assessment & Plan (10/23/2023 4:29 PM CDT): Chronic and not at goal Increase ozempic Assessment & Plan (07/18/2023 11:07 AM CDT): Chronic uncontrolled with hyperglycemia Start ozempic Repeat A1c in 3mo Hypogonadism male 07/18/2023 Assessment & Plan (03/14/2024 10:03 AM NON DESTRUCTIVE TESTING SPECIALIST): Chronic Not at goal Work on exercise, weight reduction and f/u in 3mo Repeat testosterone level in 3mo Assessment & Plan (07/18/2023 11:14 AM CDT): Chronic Not at goal Work on exercise, weight reduction and f/u in 3mo Repeat testosterone level in 3mo Mixed hyperlipidemia 07/18/2023 Assessment & Plan (03/14/2024 10:08 AM NON DESTRUCTIVE TESTING SPECIALIST): Chronic not at goal Non compliant with atorvastatin Lipid panel in 3mo Assessment & Plan (10/23/2023 4:30 PM CDT): Chronic Not at goal but inconsistent with dosing Continue atorvasttin Assessment & Plan (07/18/2023 11:08 AM CDT): Chronic Start atrovastatin 40mg Lipid and cmp in 3mo Excessive anger 07/27/2022 Assessment & Plan (03/14/2024 10:07 AM NON DESTRUCTIVE TESTING SPECIALIST): Chronic stable and well controlled Continue with [...] 020 Assessment & Plan (02/25/2019 10:35 PM NON DESTRUCTIVE TESTING SPECIALIST): prior to procedure consent was obtained after [...] on file Legal Sex Male 10:39 PM NON DESTRUCTIVE TESTING SPECIALIST Gender Identity Not on file Sexual Orientation [...] Health Maintenance Results * HEMOGLOBIN A1C (06/21/2024) [facility] Provider HEALTH MAINTENANCE Final Result EXTERNAL LAB * EGFR (10/19/2023) [facility] Provider MD HEALTH MAINTENANCE Final Result EXTERNAL LAB * LIPID PANEL (10/19/2023) SCRIBED Cholesterol, Total 227.1 SCRIBED Triglycerides 251 SCRIBED HDL 29.1 SCRIBED LDL 148 [facility] Provider MD HEALTH MAINTENANCE Final Result from Last 3 Months or Most Recently Relevant to Health Maintenance Insurance [facility] [employer] [facility] [employer] Care Teams Vp Customer Development Relationship Specialty Start Date End Date Perez Peterson PA PCP - General Family Medicine 07/27/22 Jamison Ng MD Family Medicine 12/06/18
--- OUTSIDE RECORDS SUMMARY | 2024-10-09 15:26 | XMS_ITS | Encounter Summary ---
Author Organization [facility] Address [address] [place] [address] Phone Care Team Providers Care Pill Maker Name Role Phone Nicholas Perez JAMEL Primary Care Provider Alfonso Paiz MD Unavailable [phone] Encounter Details Date Type Department Care Team (Late st Contact Info) Description 12/06/2021 Telephone [facility] [address] [place] [address] Alfonso Martinez MD [address] [place] [address] Social History Tobacco Use Types [...] documented as of this encounter Care Teams Pill Maker Relationship Specialty Start Date End Date Perez Peterson PAC PCP - General Physician Business Strategy Manager 09/04/20 Alfonso Martinez MD [address] [place] [phone] Consulting Physician Oncology 09/04/20 documented as of this encounter
[2024-10-09 16:15] VITALS: BP 121/72; PULSE 103; RESP 18; O2SAT 98
== END 2024-10-09 16:15 | disposition home or self-care (01) ==
PROVIDERS: Emergency Provider Registered Nurse; PCP Physician Assistant Medical
DX: T63.461A Toxic effect of venom of wasps, accidental (unintentional), initial encounter (principal); L50.0 Allergic urticaria; E78.5 Hyperlipidemia, unspecified; J45.909 Unspecified asthma, uncomplicated; F17.210 Nicotine dependence, cigarettes, uncomplicated; R94.31 Abnormal electrocardiogram [ECG] [EKG]
CPT/HCPCS: 71045; 93005; 94640; 96361; 96374; 96375; 99284; J1100; J7030